=== PATIENT | female | born 1940 | race Caucasian/White ===

== ENCOUNTER → 2016-05-10 | Outpatient (CLI) | payer MEDICARE, OTHER, MEDICAID ==
--- NOTE | ~2016-05-10 | ESTC ---
Cardiac Perfusion Imaging Demographics Patient Name EZRA Vanegas Gender Female Patient Number [id number] Race Visit Number [id number] [place] [id number] Room Number Accession Number [id number] Height 63 inches Date of 1940 Weight 149 pounds Physician Interpreting Memo Muñoz MD Date of study 05/10/2016 Physician Supervising /STARR Cheney APRN Technologist Ordering Physician Memo Muñoz MD Stress Margarita Alexander, pipe testing technician RT,RVT,RDCS Stress ECG Reading Briana Calderon Nurse Burt Jones RN Physician Shravan BORJA Medications Reviewed with Patient prior to Procedure. Procedure Admit Source:Other. Procedure Type: Nuclear Stress Test:Pharmacological, Lexiscan, Cardiolite Stress Test Procedure Start time: 05/10/2016 07:30 Indications: Dyspnea with exertion. Risk Factors The patient risk factors include:prior PCI on 02/24/2013;cerebrovascular disease, Current/Recent(w/in 1 year) tobacco use, treated hypercholesterolemia, treated hypertension, dyslipidemia and prior OR . Conclusions Summary Cardiolite SPECT images demonstrates homogenous uptake of radioactive tracer. No evidence of inducible reversible defect and no evidence of underlying fixed defect. Normal TID ratio Gated images demonstrate normal left ventricular systolic function, LVEF is 77% Stress Protocols Resting ECG RSR without ST or T wave changes Resting HR:58 bpm Resting BP:128/76 mmHg Pre-stress physical exam: Chronic tobacco use. Received Albuteral treatment before test. Stress Protocol:Pharmacologic Peak HR:74 bpm HR response: Appropriate Predicted HR: 146 bpm BP response: Appropriate % of predicted HR: 51 Reason for termination:Infusion complete ECG Findings No ECG changes suggestive of ischemia. Arrhythmias No rhythm abnormality. Symptoms Shortness of breath. Stress Interpretation Appropriate hemodynamic response to Lexiscan. No significant ST-T wave changes with Lexiscan. ECG portion is negative for ischemia by diagnostic criteria. Stress supervision and interpretation provided by Yumiko Warren APRN . Imaging Results Summed scores - Summed stress score: 3 - Summed rest score: 4 - Summed difference score: -1 Stress ejection Ejection fraction:77 % EDV :66 ml ESV :15 ml Stroke volume :51 ml LV mass :99 gr Imaging Protocols Rest Stress Isotope:Tc99m Sestamibi IV Isotope: Tc99m Sestamibi IV Isotope dose:10.2 mCi Isotope dose:31.1 mCi Date:05/10/2016 07:24 Date:05/10/2016 09:29 Technique: SPECT Technique: Gated Supine SPECT Supine Scan Time:45-60 minutes post Scan Time:45-60 minutes post injection injection Procedure Medications - Regadenoson (Lexiscan) 0.4 mg IV over 10-15 sec. I.V. 0.4 mg. Medical History Admission Data Admission date: 05/10/2016 Admission Time: 06:53 Hospital Status: Outpatient. Signatures dtt: Toni Hampton (cardio) dtd: 05/10/16 0730 Physician Self Edit
== END | disposition disaster alternative care site (69) ==
LOC: GRAD 06:53
DX: R06.09 Other forms of dyspnea (principal)
CPT/HCPCS: A9500; J2785